=== PATIENT | female | born 1965 | race Hispanic/Latino ===

== ENCOUNTER 2017-07-17 19:43 | Emergency (ER) | payer BC ==
[2017-07-17] MEDS ORDERED: NACL 0.9% 1000 ML 1,000 ML IV ONE ×2 (19:58→22:19)
[2017-07-17] MEDS ORDERED: DECADRON IV ONE (19:58)
[2017-07-17] MEDS ORDERED: DUONEB *Not for PRN Use IH ONE (19:59)
[2017-07-17 20:24] LABS: Basophils % (Auto) 0.3 % (0.0-1.8); Eosinophils # (Auto) 0.1 K/mm3 (0.0-0.4); Eosinophils % (Auto) 1.7 % (0.0-4.3); Hematocrit 49.5 % (30.3-42.9); Hemoglobin 16.6 gm/dl (10.1-14.3); Lymphocytes # (Auto) 3.4 K/mm3 (1.2-5.4); Lymphocytes % (Auto) 49.5 % (13.4-35.0); Mean Corpuscular HGB Conc 34 % (30-34); Mean Corpuscular Hemoglobin 30 pg (28-32); Mean Corpuscular Volume 89 fl (79-97); Monocytes # (Auto) 0.7 K/mm3 (0.0-0.8); Monocytes % (Auto) 10.3 % (0.0-7.3); Platelet Count 233 K/mm3 (140-440); Red Blood Count 5.59 M/mm3 (3.65-5.03); Red Cell Distribution Width 13.3 % (13.2-15.2)
--- NOTE | 2017-07-17 20:32 | Emergency Department Report ---
ED Asthma HPI - General Stated Complaint: ELLIE Time Seen by Provider: 07/17/17 19:56 Source: patient Mode of arrival: Ambulatory Limitations: No Limitations - History of Present Illness Initial Comments: 52-year-old female past medical history borderline diabetes, hypothyroid, history of reactive airway disease, obesity, cervical ablation presents with complaint of 3 days of bodyaches sore throat and cough. Patient states she is currently feeling somewhat short of breath and has been using albuterol inhaler with minimal relief of coughing. Patient is awake alert and oriented 3 fully lucid and able to speak in full sentences. No audible wheezing no audible stridor patient states she is having some difficulty exerting herself due to shortness of breath. Patient denies any lower extremity swelling or calf pain. No personal history of DVT or PE. No recent surgeries. Not taking any hormones or oral contraceptives. 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 Multiple exposures to influenza this week. Also states that her has influenza. She is not a smoker. Denies alcohol or drug use. Patient denies chest pain MD Complaint: "asthma attack", wheezing Onset/Timin -: days(s) Treatments Prior to Arrival: inhaled bronchodilator - Related Data Current Asthma Therapy: inhaled bronchodilator Allergies Allergy/AdvReac Type Severity Reaction Status Date / Time Penicillins Allergy Hives Verified 07/17/17 19:57 Sulfa (Sulfonamide Allergy Anaphylaxis Verified 07/17/17 19:58 Antibiotics) ED Review of Systems ROS: Stated complaint: ELLIE Other details as noted in HPI Constitutional: malaise. denies: chills, fever Eyes: denies: eye pain, eye discharge, vision change ENT: throat pain. denies: ear pain Respiratory: cough, shortness of breath. denies: wheezing Cardiovascular: denies: chest pain, palpitations Endocrine: no symptoms reported Gastrointestinal: denies: abdominal pain, nausea, diarrhea Genitourinary: denies: urgency, dysuria, discharge Musculoskeletal: denies: back pain, joint swelling, arthralgia Skin: denies: rash, lesions Neurological: denies: headache, weakness, paresthesias Psychiatric: denies: anxiety, depression Hematological/Lymphatic: denies: easy bleeding, easy bruising ED Physical Exam - General Limitations: No Limitations General appearance: alert, in no apparent distress - Head Head exam: Present: atraumatic, normocephalic - Eye Eye exam: Present: normal appearance, PERRL, EOMI - ENT ENT exam: Present: mucous membranes moist - Neck Neck exam: Present: normal inspection - Respiratory Respiratory exam: Present: wheezes (some wheezing bilaterally in lower lung espinal). Absent: respiratory distress - Cardiovascular Cardiovascular Exam: Present: regular rate, normal rhythm. Absent: systolic murmur, diastolic murmur, rubs, gallop - GI/Abdominal GI/Abdominal exam: Present: soft, normal bowel sounds - Extremities Exam Extremities exam: Present: normal inspection - Back Exam Back exam: Present: normal inspection - Neurological Exam Neurological exam: Present: alert, oriented X3 - Psychiatric Psychiatric exam: Present: normal affect, normal mood - Skin Skin exam: Present: warm, dry, intact, normal color. Absent: rash ED Course Vital Signs 07/17/17 07/17/17 07/17/17 19:51 20:10 20:19 Temperature 98.0 F Pulse Rate 133 H Pulse Rate [ 139 H 138 H Anterior Bilateral Throughout] Respiratory Rate Respiratory 24 22 Rate [Anterior Bilateral Throughout] Blood Pressure 158/111 Blood Pressure [Left] O2 Sat by Pulse 96 Oximetry 07/17/17 07/17/17 22:49 23:11 Temperature 97.7 F Pulse Rate 105 H 101 H Pulse Rate [ Anterior Bilateral Throughout] Respiratory 20 Rate Respiratory Rate [Anterior Bilateral Throughout] Blood Pressure Blood Pressure 150/90 [Left] O2 Sat by Pulse 99 100 Oximetry ED Medical Decision Making - Lab Data Result diagrams: 07/17/17 20:07 07/17/17 20:07 - Medical Decision Making A/P: Possible influenza versus viral syndrome, reactive airway disease, wheezing , hyperglycemia 1-case discussed with Dr. Mcgee who instructed me to hydrate the patient provide symptomatic treatment for reactive airway and repeat vital signs. I signed out the case to Dr. Mcgee to continue management at the end of my shift. IV fluid resuscitation to mitigate hyperglycemia. Patient is not currently taking any diabetic medicines 2-tachycardia improving 3-influenza swab negative, chest x-ray unremarkable Critical care attestation.: If time is entered above; I have spent that time in minutes in the direct care of this critically ill patient, excluding procedure time. ED Disposition Condition: Stable
[2017-07-17 20:42] LABS: Calcium 9.4 mg/dL (8.4-10.2)
[2017-07-17] MEDS ORDERED: ZOFRAN ONE (21:10)
[2017-07-17] MEDS ORDERED: TYLENOL #3 PO ONE (21:13)
[2017-07-17] MEDS ORDERED: ZOFRAN IV ONE (21:16)
--- NOTE | 2017-07-17 21:18 | XRay Report ---
FINAL REPORT EXAM: XR CHEST ROUTINE 2V HISTORY: Shortness of breath TECHNIQUE: Two views of the chest Comparison: None FINDINGS: Normal heart size. Mildly eventration right hemidiaphragm. Lungs are clear and well expanded. There are no pleural effusions. Imaged axial skeleton is unremarkable. IMPRESSION: Mildly eventration right hemidiaphragm. No acute cardiopulmonary disease.
[2017-07-17] MEDS ORDERED: TESSALON PERLES PO ONE (21:20)
[2017-07-17] MEDS ORDERED: PROVENTIL IH ONE ×2 (21:49→23:47)
[2017-07-17] MEDS ORDERED: MAGNESIUM SULFATE 2GM/50ML 2 GM/50 ML BAG IV ONE (21:49)
[2017-07-17 22:30] LABS: Magnesium 1.6 mg/dL (1.7-2.3)
[2017-07-17 22:50] VITALS: BP 150/90
[2017-07-17 23:08] LABS: Bilirubin,Urine NEG (Negative); Blood,Urine NEG (Negative); Color,Urine Straw (Yellow); Hyaline Casts,Urine 3 /LPF; Mucus,Urine FEW /HPF; Nitrite,Urine NEG (Negative); Protein,Urine <15 mg/dL mg/dL (Negative); Urobilinogen,Urine < 2.0 mg/dL (<2.0)
== END 2017-07-18 01:46 | disposition home or self-care (01) ==
LOC: ED 19:43
DX: J45.909 Unspecified asthma, uncomplicated (principal); J02.9 Acute pharyngitis, unspecified; Z88.0 Allergy status to penicillin; Z88.2 Allergy status to sulfonamides
CPT/HCPCS: 36415; 71046; 80048; 81001; 82550; 82962; 83735; 85025; 87400; 87491; 94640; 96361; 96365; 96375; 99284; J1100; J2405; J3475; J7030

== ENCOUNTER 2018-09-28 12:33 | Emergency (ER) | payer BC ==
[2018-09-28 13:14] VITALS: BP 159/97
--- NOTE | 2018-09-28 13:17 | XRay Report ---
ROUTINE CHEST, TWO VIEWS: HISTORY: Shortness of breath. The trachea, heart, mediastinal contour, lung espinal and bony thorax are unremarkable. IMPRESSION: Unremarkable chest x-ray. No significant change since 05/09/18.
[2018-09-28] MEDS ORDERED: ATROVENT IH ONE (14:01)
[2018-09-28] MEDS ORDERED: PROVENTIL IH ONE (14:01)
[2018-09-28] MEDS ORDERED: NORCO 5/325 PO ONE (14:23)
--- NOTE | 2018-09-28 14:24 | Emergency Department Report ---
ED Shortness of Breath HPI - General Chief Complaint: Dyspnea/Respdistress Source: patient Mode of arrival: Ambulatory Limitations: No Limitations - History of Present Illness Initial Comments: 53-year-old female with a past medical history of "reactive airway disease", hypothyroidism, diabetes, and hypertension presents to Hospital complaints of ongoing and progressively worsening shortness of breath for at least 3 weeks. Last month patient received a Z-Tiago for bronchitis. More recently she completed a second course of antibiotics and was treated with doxycycline. She just came from her primary care doctor office who treated her with IM steroids and nebs prior to her coming to the ER for a chest x-ray. Patient is dyspneic and denies improvement after meds. Patient states symptoms worsen at night. She continues to have a cough productive of frothy white sputum. She has right lower chest pain with inspiration and palpation. Chronic intermittent leg edema without asymmetry or calf tenderness. She denies recent travel, history of CHF, history of PE/DVT. Patient states her PMD has prescribed albuterol inhaler, albuterol nebs, and Symbicort to be taken at home. Patient denies a diagnosis of asthma but states she has been diagnosed with reactive airway disease since 2010. She states the symptoms are often triggered by noxious smells and pollen. - Related Data Previous Rx's Medication Instructions Recorded Last Taken Type Acetaminophen [Acetaminophen TAB] 650 mg PO Q4H PRN tablet 05/09/18 Unknown Rx Levothyroxine [Synthroid] 150 mcg PO DAILY@0600 tablet 05/09/18 Unknown Rx Sitagliptin Phosphate [Januvia] 50 mg PO QDDIAB #30 tablet 05/09/18 Unknown Rx Triamter/Hctz 37.5-25 mg 1 each PO QAM tablet 05/09/18 Unknown Rx [Maxzide-25] Venlafaxine Xr [Effexor XR] 150 mg PO QDAY capsule 05/09/18 Unknown Rx metFORMIN XR [Glucophage XR] 1,000 mg PO BID tablet 05/09/18 Unknown Rx Allergies Allergy/AdvReac Type Severity Reaction Status Date / Time Penicillins Allergy Hives Verified 07/17/17 19:57 Sulfa (Sulfonamide Allergy Anaphylaxis Verified 07/17/17 19:58 Antibiotics) ED Review of Systems ROS: Stated complaint: Other details as noted in HPI Comment: All other systems reviewed and negative ED Past Medical Hx - Past Medical History Previous Medical History?: Yes Hx Hypertension: Yes Hx Heart Attack/AMI: Yes Hx Diabetes: Yes Hx Asthma: Yes Additional medical history: hypothyroid - Surgical History Past Surgical History?: Yes Hx Cholecystectomy: Yes Additional Surgical History: C/SX3, LEEP, Tube ligation, Uterine S/p. Negative cardiac cath 2014. Negative stress test April 2018 - Social History Smoking Status: Never Smoker Substance Use Type: None - Medications Home Medications: Home Medications Medication Instructions Recorded Confirmed Last Taken Type Acetaminophen [Acetaminophen TAB] 650 mg PO Q4H PRN tablet 05/09/18 Unknown Rx Levothyroxine [Synthroid] 150 mcg PO DAILY@0600 tablet 05/09/18 Unknown Rx Sitagliptin Phosphate [Januvia] 50 mg PO QDDIAB #30 tablet 05/09/18 Unknown Rx Triamter/Hctz 37.5-25 mg 1 each PO QAM tablet 05/09/18 Unknown Rx [Maxzide-25] Venlafaxine Xr [Effexor XR] 150 mg PO QDAY capsule 05/09/18 Unknown Rx metFORMIN XR [Glucophage XR] 1,000 mg PO BID tablet 05/09/18 Unknown Rx ED Physical Exam - General Limitations: No Limitations - Other Other exam information: General: No limitations, patient is alert in no acute distress Head exam: Atraumatic, normocephalic Eyes exam: Normal appearance, pupils equal reactive to light, extraocular movements intact ENT: Moist mucous membrane, normal oropharynx Neck exam: Normal inspection, full range of motion, no meningismus nontender Respiratory exam: Clear to auscultation bilateral, no wheezes, rales, crackles. Patient is dyspneic but no audible wheeze. Cough with deep inspiration. Tenderness to the right anterior lower chest wall reproducible on palpation. Cardiovascular: Normal rate and rhythm, normal heart sounds Abdomen: Soft, nondistended, and nontender, with normal bowel sounds, no rebound, or guarding Extremity: Full range of motion normal inspection no deformity, no tenderness, minimal edema and equal bilaterally Back: Normal Inspection, full range of motion, no tenderness Neurologic: Alert, oriented x3, cranial nerves intact, no motor or sensory deficit Psychiatric: normal affect, normal mood Skin: Warm, dry, intact ED Course Vital Signs 09/28/18 09/28/18 09/28/18 13:13 13:17 14:33 Temperature 97.5 F L Pulse Rate 100 H Respiratory 24 20 20 Rate Blood Pressure 159/97 [Right] O2 Sat by Pulse 97 Oximetry 09/28/18 15:33 Temperature Pulse Rate Respiratory 16 Rate Blood Pressure [Right] O2 Sat by Pulse Oximetry ED Medical Decision Making - Lab Data Result diagrams: 09/28/18 14:40 09/28/18 14:40 Lab Results 09/28/18 09/28/18 09/28/18 Range/Units 14:40 14:40 14:40 WBC 7.6 (4.5-11.0) K/mm3 RBC 5.22 H (3.65-5.03) M/mm3 Hgb 15.8 H (10.1-14.3) gm/dl Hct 46.0 H (30.3-42.9) % MCV 88 (79-97) fl MCH 30 (28-32) pg MCHC 34 (30-34) % RDW 13.4 (13.2-15.2) % Plt Count 226 (140-440) K/mm3 Lymph % (Auto) 44.9 H (13.4-35.0) % [place] % (Auto) 6.3 (0.0-7.3) % Eos % (Auto) 0.1 (0.0-4.3) % Baso % (Auto) 0.2 (0.0-1.8) % Lymph # 3.4 (1.2-5.4) K/mm3 [place] # 0.5 (0.0-0.8) K/mm3 Eos # 0.0 (0.0-0.4) K/mm3 Baso # 0.0 (0.0-0.1) K/mm3 Seg Neutrophils % 48.5 (40.0-70.0) % Seg Neutrophils # 3.7 (1.8-7.7) K/mm3 D-Dimer 135.00 (0-234) ng/mlDDU Sodium 137 (137-145) mmol/L Potassium 4.2 (3.6-5.0) mmol/L Chloride 98.3 (98-107) mmol/L Carbon Dioxide 26 (22-30) mmol/L Anion Gap 17 mmol/L BUN 10 (7-17) mg/dL Creatinine 0.7 (0.7-1.2) mg/dL Estimated GFR > 60 ml/min BUN/Creatinine Ratio 14 % Glucose 479 H (65-100) mg/dL Calcium 9.7 (8.4-10.2) mg/dL Total Creatine Kinase (30-135) units/L CK-MB (CK-2) (0.0-4.0) ng/mL CK-MB (CK-2) Rel Index (0-4) Troponin T (0.00-0.029) ng/mL 09/28/18 Range/Units 14:40 WBC (4.5-11.0) K/mm3 RBC (3.65-5.03) M/mm3 Hgb (10.1-14.3) gm/dl Hct (30.3-42.9) % MCV (79-97) fl MCH (28-32) pg MCHC (30-34) % RDW (13.2-15.2) % Plt Count (140-440) K/mm3 Lymph % (Auto) (13.4-35.0) % [place] % (Auto) (0.0-7.3) % Eos % (Auto) (0.0-4.3) % Baso % (Auto) (0.0-1.8) % Lymph # (1.2-5.4) K/mm3 [place] # (0.0-0.8) K/mm3 Eos # (0.0-0.4) K/mm3 Baso # (0.0-0.1) K/mm3 Seg Neutrophils % (40.0-70.0) % Seg Neutrophils # (1.8-7.7) K/mm3 D-Dimer (0-234) ng/mlDDU Sodium (137-145) mmol/L Potassium (3.6-5.0) mmol/L Chloride (98-107) mmol/L Carbon Dioxide (22-30) mmol/L Anion Gap mmol/L BUN (7-17) mg/dL Creatinine (0.7-1.2) mg/dL Estimated GFR ml/min BUN/Creatinine Ratio % Glucose (65-100) mg/dL Calcium (8.4-10.2) mg/dL Total Creatine Kinase 75 (30-135) units/L CK-MB (CK-2) 3.7 (0.0-4.0) ng/mL CK-MB (CK-2) Rel Index 4.9 H (0-4) Troponin T < 0.010 (0.00-0.029) ng/mL - EKG Data -: EKG Interpreted by Me EKG shows normal: sinus rhythm, axis (9), QRS complexes (qrsd 86), ST-T waves Rate: normal (87) - Radiology Data Radiology results: report reviewed ROUTINE CHEST, TWO VIEWS: HISTORY: Shortness of breath. The trachea, heart, mediastinal contour, lung espinal and bony thorax are unremarkable. IMPRESSION: Unremarkable chest x-ray. No significant change since 05/09/18. - Medical Decision Making Patient had symptomatic relief with eating treatment of albuterol and Atrovent. Minimal improvement in peak flow. D-dimer negative. Patient incidentally has hyperglycemia despite compliance with oral meds. Increased glucose can be secondary to IM steroid prior to arrival. Patient also warned that Symbicort contains a steroid which may also cause hyperglycemia. Patient's also stated that patient has not been compliant with diabetic diet. Patient treated with subcutaneous insulin and oral hydration since peripheral IV was difficult to obtain. Patient plans to follow-up primary care doctor tomorrow for further diabetes medication adjustment. Patient will check her sugar at home and therefore was not observed for repeat glucose shows no signs of DKA - Differential Diagnosis RAD, asthma, COPD, pneumonia, arthritis, CHF, PE Critical Care Time: No Critical care attestation.: If time is entered above; I have spent that time in minutes in the direct care of this critically ill patient, excluding procedure time. ED Disposition Clinical Impression: Asthma exacerbation, Hyperglycemia Disposition: DC-01 TO HOME OR SELFCARE Is pt being admited?: No Does the pt Need Aspirin: No Condition: Stable Instructions: Asthma (ED), Diabetic Hyperglycemia (ED) Additional Instructions: Take your recently prescribed medication as directed. Follow up with your doc tor or the clinic/doctor provided. Return if symptoms worsen as indicated by your discharge instructions Referrals: LUIS JOLLEY PA [Primary Care Provider] - 09/29/18 Time of Disposition: 16:41
[2018-09-28 14:54] LABS: Basophils % (Auto) 0.2 % (0.0-1.8); Eosinophils % (Auto) 0.1 % (0.0-4.3); Hemoglobin 15.8 gm/dl (10.1-14.3); Lymphocytes # (Auto) 3.4 K/mm3 (1.2-5.4); Lymphocytes % (Auto) 44.9 % (13.4-35.0); Mean Corpuscular HGB Conc 34 % (30-34); Mean Corpuscular Volume 88 fl (79-97); Monocytes # (Auto) 0.5 K/mm3 (0.0-0.8); Monocytes % (Auto) 6.3 % (0.0-7.3); Platelet Count 226 K/mm3 (140-440); Red Blood Count 5.22 M/mm3 (3.65-5.03); Red Cell Distribution Width 13.4 % (13.2-15.2)
[2018-09-28 15:14] LABS: BUN/Creatinine Ratio 14; Blood Urea Nitrogen 10 mg/dL (7-17); Calcium 9.7 mg/dL (8.4-10.2); Hemolysis Index 8
[2018-09-28 15:16] LABS: Creatine Kinase MB 3.7 ng/mL (0.0-4.0)
[2018-09-28] MEDS ORDERED: NACL 0.9% 1000 ML 1,000 ML IV ONE (15:34)
[2018-09-28] MEDS ORDERED: HumuLIN R IV ONE (15:34)
[2018-09-28] MEDS ORDERED: HumuLIN R SUB-Q ONE ×2 (16:10→16:18)
[2018-09-28] MEDS ORDERED: HumuLIN R ONE (16:15)
== END 2018-09-28 16:58 | disposition home or self-care (01) ==
LOC: XRAY 12:33 → ED 12:33 → EDSTATUS 13:07 → ED 16:58
DX: E11.65 Type 2 diabetes mellitus with hyperglycemia (principal); J45.901 Unspecified asthma with (acute) exacerbation; E11.9 Type 2 diabetes mellitus without complications; I25.2 Old myocardial infarction; E03.9 Hypothyroidism, unspecified; Z90.49 Acquired absence of other specified parts of digestive tract; Z98.51 Tubal ligation status; Z79.899 Other long term (current) drug therapy; Z88.2 Allergy status to sulfonamides; Z88.0 Allergy status to penicillin
CPT/HCPCS: 36415; 71046; 80048; 82550; 82553; 82962; 84484; 85025; 85379; 93005; 93010; 94640; 96372; J1815